=== PATIENT | female | born 1945 | race African-American/Black ===

== ENCOUNTER 2020-06-22 07:11 | Inpatient (IN) | payer MEDICARE ==
[~2020-06-22] VITALS: Ht 165.1 cm; Wt 117.7 kg
[2020-06-22 04:30] VITALS: BP 123/72
[2020-06-22 07:37] VITALS: BP 118/63
[2020-06-22 08:09] LABS: BASOPHILS 0.1 % (0-2); EOSINOPHILS 1.4 % (0-7); HEMATOCRIT 30.2 % (36.0-48.0); IMMATURE GRANULOCYTES 0.5 % (0-5); LYMPHOCYTE ABS# 1.31 10x3/uL (1.18-3.74); LYMPHOCYTES 9.7 % (15-50); MCH 26.8 pg (26.0-34.0); MCHC 33.1 g/dL (31.0-37.0); MEAN PLATELET VOLUME 10.5 fL (7.4-10.4); MONOCYTES 5.5 % (2-11); NEUTROPHILS 82.8 % (40-80); PLATELET COUNT 371 10x3/uL (130-400); RBC 3.73 10x6/uL (4.00-5.40); RDW 16.3 % (11.5-14.5); WBC 13.5 10x3/uL (4.8-10.8)
[2020-06-22 08:18] LABS: CARBON DIOXIDE 28.1 mmol/L (21.0-32.0); CKMB 3.1 U/L (0.0-3.6); CREATINE KINASE 301 UL (21-215); CREATININE - SERUM 6.3 mg/dL (0.6-1.3); GLUCOSE 122 mg/dL (74-106); POTASSIUM - SERUM 3.6 mmol/L (3.5-5.1); SODIUM 124 mmol/L (136-145); eGFR NON AFRICAN AMERICAN 7 mL/min (90-120)
[2020-06-22 08:21] LABS: CALC OSMOLALITY 307 mosm/kg (275-300); TROPONIN-I < 0.017 ng/mL (0.000-0.060)
[2020-06-22 08:23] LABS: CHLORIDE - SERUM 81 mmol/L (98-107); UREA NITROGEN 171 mg/dL (7-18)
--- NOTE | 2020-06-22 09:25 | NUR ---
IV TO LEFT AC INFILTRATED, DISCONTINUED WITH TIP INTACT AND BLEEDING CONTROLLED. IV RESITED TO RIGHT AC, 20 GAUGE. PATIENT TOLERATED WELL. GOOD BLOOD RETURN AND FLUSHES WELL WITHOUT ANY RESISTANCE OR SWELLING. IV FLUIDS RESTARTED TO NEW IV. AT THIS TIME. FAMILY AT BEDSIDE.
[2020-06-22] MEDS ORDERED: ZYLOPRIM100 MG PO (11:08)
[2020-06-22] MEDS ORDERED: IPRAT-ALBUT 0.5-3 ML UPD (11:08)
[2020-06-22] MEDS ORDERED: LIPITOR20 MG PO (11:09)
[2020-06-22] MEDS ORDERED: PULMICORT0.25 MG/1 INH (11:09)
[2020-06-22] MEDS ORDERED: NORVASC2.5 MG PO (11:09)
[2020-06-22] MEDS ORDERED: TIROSINT25 MCG PO (11:10)
[2020-06-22] MEDS ORDERED: LINZESS290 MCG PO (11:10)
[2020-06-22] MEDS ORDERED: HYDRALAZINE HCL25 MG PO (11:10)
[2020-06-22] MEDS ORDERED: LASIX80 MG PO (11:10)
[2020-06-22] MEDS ORDERED: CLARITIN 10 MG10 MG PO (11:11)
[2020-06-22] MEDS ORDERED: DITROPAN XL 1010 MG PO (11:11)
[2020-06-22] MEDS ORDERED: NORTRIPTYLINE H50 MG PO (11:11)
[2020-06-22] MEDS ORDERED: OMEPRAZOLE20 M1 PO (11:11)
[2020-06-22] MEDS ORDERED: MIRALAX17 GM PO (11:12)
[2020-06-22] MEDS ORDERED: K-DUR20 MEQ PO (11:12)
[2020-06-22 12:00] VITALS: BP 122/69
--- NOTE | 2020-06-22 12:00 | NUR ---
NURSE RECEIVED PATIENT FROM ER VIA BED, FAMILY WITH PATIENT IN ROOM. PATIENT HAS MOVEMENT TO HER LEGS, BUT UNABLE TO STAND. PATIENT IS A MAX ASSIST. PATIENT HAS A CRANDALL CATH ON ARRIVAL, AND A TRACH (DAUGHTER STATES TRACH IS DUE TO PATIENT'S AIR WAY CLOSING WHEN SHE SLEEPS, SO THEY PLACED THIS). PATIENT IS ALERT AND ORIENTED. PATIENT DOES HAVE BREAKDOWN ON HER COCCYX AND TOPS OF HER LEGS, PATIENT HAS A DRESSING TO HER LEFT LEG. PATIENT EATS AND DRINKS REGULARLY. SHE LIVES AT HOME WHERE HER DAUGHTER HIS HER CAREGIVER. CALL LIGHT IN REACH.
[2020-06-22 12:43] VITALS: BP 122/69; BMI 38.6
--- NOTE | 2020-06-22 16:21 | NUR ---
NURSE TALKS WITH PATIENT'S DAUGHTER AND PATIENT ABOUT CODE STATUS. PATIENT STATES SHE UNDERSTANDS WHAT IT MEANS TO BE A DNR AND THAT IS WHAT SHE CHOOSES, SHE DOES NOT WISH TO HAVE HER HEART STARTED BACK IF IT STOPS AND NO MEDICATIONS EITHER. NURSE HAS A WITNESS SIGN WITH HER AND WILL NOTIFY MD/PLYWOOD LAYUP LINE CORE FEEDER OF PATIENT'S WISHES.
--- NOTE | 2020-06-22 19:30 | NUR ---
PT IN BED, EYES CLOSED, RESP EVEN AND UNLABORED, NO DISTRESS NOTED, CL IN REACH, SR UP X 2.
[2020-06-22 20:39] VITALS: BP 100/64
--- NOTE | 2020-06-22 23:15 | NUR ---
PT CHECKED FOR IMPACTION, SOFT STOOL NOTED, SOAP SUDS ENEMA GIVEN X 3. LARGE SOFT BROWN BM NOTED AT THIS TIME.
[2020-06-22 23:46] LABS: ANION GAP 16.8 mmol/L (8-16); CARBON DIOXIDE 28.3 mmol/L (21.0-32.0); CREATININE - SERUM 6.8 mg/dL (0.6-1.3); POTASSIUM - SERUM 3.1 mmol/L (3.5-5.1)
[2020-06-23] VITALS (9 sets, daily range): BP systolic 91–153; BP diastolic 59–103; Ht 165.1 cm; Wt 117.7 kg
--- NOTE | 2020-06-23 02:05 | NUR ---
RENAL NOTIFIED OF CONSULT FOR PT PER [facility]IMARY [facility] LEADER ORDER. SUBSANTIAL LABS REPORTED. NOTIFIED OF CURRENT PLAN OF CARE. NEW LABS WILL BE DRAWN IN AM TO REFLECT CURRENT FLUID CHALLENGE. NEW 20G PIV SITED TO LEFT FA, PT TOLERATED WELL.
--- NOTE | 2020-06-23 05:38 | NUR ---
BED BATH GIVEN TO PT
[2020-06-23 06:11] LABS: BASOPHILS 0.2 % (0-2); EOSINOPHILS 1.8 % (0-7); HEMATOCRIT 30.5 % (36.0-48.0); HEMOGLOBIN 9.9 g/dL (12-16); IMMATURE GRANULOCYTES 0.6 % (0-5); LYMPHOCYTE ABS# 1.53 10x3/uL (1.18-3.74); LYMPHOCYTES 10.6 % (15-50); MCH 26.7 pg (26.0-34.0); MCHC 32.5 g/dL (31.0-37.0); MCV 82.2 fL (80.0-100.0); MEAN PLATELET VOLUME 10.3 fL (7.4-10.4); MONOCYTES 5.5 % (2-11); NEUTROPHIL ABS# 11.72 10x3/uL (1.56-6.13); NEUTROPHILS 81.3 % (40-80); PLATELET COUNT 375 10x3/uL (130-400); RBC 3.71 10x6/uL (4.00-5.40); RDW 16.4 % (11.5-14.5); WBC 14.4 10x3/uL (4.8-10.8)
[2020-06-23 06:53] LABS: ANION GAP 19.2 mmol/L (8-16); C-REACTIVE PROTEIN 11.4 mg/dL (0.0-0.9); CALCIUM 8.1 mg/dL (8.5-10.1); CREATININE - SERUM 6.6 mg/dL (0.6-1.3); MAGNESIUM - SERUM 2.9 mg/dL (1.8-2.4); POTASSIUM - SERUM 3.2 mmol/L (3.5-5.1)
[2020-06-23 07:02] LABS: PHOSPHOROUS 10.3 mg/dL (2.5-4.9)
--- NOTE | 2020-06-23 07:47 | NUR ---
ROUNDING DONE WITH EXTREME LARGE ABDOMINAL AREA, SOFT TO PALPATE. NIGHT NURSE HAS BEEN GIVEING SOAP SUDS ENEMAS ALL NIGHT WITH EXCELLENT RESUTLS. PATIENT IS A DNR CODE STATUS. ON ROOM AIR WITH PESSIMIRE VALUE IN TRACH. BILATERAL SCD ON AND IN USE. LEFT FA SEEN PIV WITH NS INFUSING AT 100 CC/HR. PATIENT WITH CHRONIC CRANDALL CATH. WAS TOLD MEPILEX IS ON BOTTOM WILL LOOK SHORTLY AND CHANGE IF NO DATE. BED ALARM IS SET.
--- NOTE | 2020-06-23 09:54 | NUR ---
OT NOTE: PT LIEING AT APPROX 45 DEGREE ANGLE IN BED. PRACTICED BED MOB INCLUDING ROLLING FROM SIDE TO SIDE.. PT PERFORMED BETTER TODAY. PERFORMED UE AROM EXS WITH FREQ REST BREAKS. POSITIONED PT IN BED ON L SIDE FOR PRESSURE RELIEF TO BUTTOCKS. PT ASKING ABOUT BREAKFAST AND WHY SHE DID NOT RECEIVE A TRAY. NOTICED NPO ON DOOR.. ATTEMPTED TO FIND NURSING AND CHECK CHART BUT DID NOT FIND ANYTHING AT THIS TIME. WILL CHECK IN PM FOR CONT AROM EXS AND POSIITONING XAVIER MADRIGAL, OTR/L [phone]
--- NOTE | 2020-06-23 10:12 | NUR ---
DAUGHTER TO CALL AND CHECK ON HER.
--- NOTE | 2020-06-23 11:33 | NUR ---
WITH ASSIST X 4 PATIENT ROLLED TO EACH SIDE TO LOOK AT WOUNDS. LARGE ENTIRE BUTTOCK AREA SEEN WITH STAGE 2 WITH OLD PRESSURE SORES THAT HAVE HEALED. CULTURE TAKEM FROM LEFT POSTERIOR THIGH. URINE FROM PORT ON CRANDALL CATH BAG. MEPILEX PLACED TO BUTTOCK AND WHITE CORFER GUAZE TO BOTH LEFT AND RIGHT POSTERIOR UPPER THIGHS. DATED.
[2020-06-23 14:20] LABS: BILIRUBIN NEGATIVE (NEGATIVE); KETONE NEGATIVE (NEGATIVE); NITRITE NEGATIVE (NEGATIVE); UROBILINOGEN NORMAL mg/dL (< 2)
[2020-06-23 14:21] LABS: BACTERIA MANY HPF (NONE SEEN); SQUAMOUS EPITHELIAL 0-5 HPF (0-4)
--- NOTE | 2020-06-23 16:11 | NUR ---
GOSIA ROMERO APN ON FLOOR AND I ASKED HER TO SEE PATIENT REGARDING MORE DISTENDED TO ABDOMEN. GOSIA CALLED DR RHODES TO SOME SEE PATIENT. THE CT THAT WAS ORDERED SHE NEEDS TO BE STAT AND PAGE INTO DR ROLDAN PER DR RHODES. PATIENT IS HEADED TO CT VIA BED FOR EXAM.
--- NOTE | 2020-06-23 16:29 | NUR ---
RETURNS FROM CT
--- NOTE | 2020-06-23 17:05 | NUR ---
HR IS [address] RHODES IS HERE AND NEW ORDERS TO MOVE PATIENT TO UNIT. CALLED PUBLIC WORKS COMMISSIONER FOR ROOM, AWAITING.
--- NOTE | 2020-06-23 17:12 | NUR ---
REPORT CALLED TO RYANN CEBALLOS IN ICU. AWAITING ROOM.
--- NOTE | 2020-06-23 17:15 | NUR ---
I ASKED FOR GOSIA ROMERO APN TO CALL THE DAUGHTER AND EXPLAIN WHAT IT GOING ON. SHE SAID THAT SHE WOULD.
--- NOTE | 2020-06-23 17:41 | NUR ---
RECEIVED FROM [place], ATTACHED TO MONITOR. HR 150, IRMA AGUIRRE DISCUSSING PLAN WITH BILL COPE APRN.
--- NOTE | 2020-06-23 18:26 | NUR ---
henry kennedy [phone] (astrid, closest family to her)
--- NOTE | 2020-06-23 18:26 | NUR ---
spoke with daughter from [facility] given update.
--- NOTE | 2020-06-23 18:29 | NUR ---
IS ORIENTED TO SELF AND TIME. REORIENTED THAT SHE GOT HERE YESTERDAY FROM [place]. DR. ROLDAN CAME BY, PERFORMED JUNG WITH SOME FLATULENCE AND MINIMAL STOOL THAT CAME BACK. ORDERED RECTAL TUBE AND INTERMITTENT ENEMAS. RECTAL TUBE INSERTED BY WILL AGUIRRE RN. 500 CC ENEMA GIVEN VIA RECTAL TUBE BY ME. RETURNED 2000 CC OF FLATULENCE AND 300 CC OF BROWN LIQUID. TOLERATED WELL. ABD CONSIDERABLY SOFTER AFTER THIS PROCEDURE. SHE DOES PRESENT WITH RESOLVING PRESSURE ULCERS TO HER SACRAL AND THIGH AREAS. STILL WITH SMALL STAGE IIS ON BACK OF THIGHS, AND STAGE IIS NOTED TO ABD FOLDS. BUTT PASTE AND POWDER ARE APPLIED TO THESE AREAS. MEPILEX APPLIED TO SACRUM. LEFT ON LEFT SIDE.
[2020-06-24] VITALS (24 sets, daily range): BP systolic 101–189; BP diastolic 52–109
[2020-06-24 03:35] LABS: BASOPHILS 0.1 % (0-2); EOSINOPHILS 1.3 % (0-7); HEMATOCRIT 27.9 % (36.0-48.0); HEMOGLOBIN 8.9 g/dL (12-16); IMMATURE GRANULOCYTES 0.6 % (0-5); LYMPHOCYTE ABS# 1.52 10x3/uL (1.18-3.74); LYMPHOCYTES 10.7 % (15-50); MCH 26.3 pg (26.0-34.0); MCHC 31.9 g/dL (31.0-37.0); MCV 82.3 fL (80.0-100.0); MEAN PLATELET VOLUME 9.9 fL (7.4-10.4); MONOCYTES 6.5 % (2-11); NEUTROPHIL ABS# 11.42 10x3/uL (1.56-6.13); NEUTROPHILS 80.8 % (40-80); PLATELET COUNT 324 10x3/uL (130-400); RBC 3.39 10x6/uL (4.00-5.40); RDW 16.3 % (11.5-14.5); WBC 14.2 10x3/uL (4.8-10.8)
[2020-06-24 03:44] LABS: ALBUMIN 2.7 g/dL (3.4-5.0); ANION GAP 18.1 mmol/L (8-16); BILIRUBIN - TOTAL 0.32 mg/dL (0.2-1.3); CALCIUM 8.1 mg/dL (8.5-10.1); CARBON DIOXIDE 25.8 mmol/L (21.0-32.0); CREATININE - SERUM 6.1 mg/dL (0.6-1.3); PHOSPHOROUS 9.5 mg/dL (2.5-4.9); PROTEIN - SERUM 6.8 g/dL (6.4-8.2)
[2020-06-24 03:46] LABS: POTASSIUM - SERUM 2.9 mmol/L (3.5-5.1)
--- NOTE | 2020-06-24 04:30 | NUR ---
notified Vince Sin of critical values. Dr Mccartney to see this morning.
[2020-06-24 14:55] LABS: ANION GAP 17.6 mmol/L (8-16); CALCIUM 8.2 mg/dL (8.5-10.1); CARBON DIOXIDE 25.3 mmol/L (21.0-32.0); CREATININE - SERUM 5.8 mg/dL (0.6-1.3)
[2020-06-24 14:58] LABS: POTASSIUM - SERUM 2.9 mmol/L (3.5-5.1)
[2020-06-24 23:48] LABS: ANION GAP 16.9 mmol/L (8-16); CALCIUM 8.2 mg/dL (8.5-10.1); CARBON DIOXIDE 24.4 mmol/L (21.0-32.0); CREATININE - SERUM 5.7 mg/dL (0.6-1.3); POTASSIUM - SERUM 3.3 mmol/L (3.5-5.1)
[2020-06-25] VITALS (24 sets, daily range): BP systolic 96–129; BP diastolic 50–96
[2020-06-25 04:31] LABS: BASOPHILS 0.1 % (0-2); EOSINOPHILS 1.4 % (0-7); HEMOGLOBIN 7.8 g/dL (12-16); IMMATURE GRANULOCYTES 0.5 % (0-5); LYMPHOCYTE ABS# 1.07 10x3/uL (1.18-3.74); LYMPHOCYTES 7.2 % (15-50); MCH 26.2 pg (26.0-34.0); MCHC 31.2 g/dL (31.0-37.0); MCV 83.9 fL (80.0-100.0); MEAN PLATELET VOLUME 10.2 fL (7.4-10.4); MONOCYTES 5.8 % (2-11); NEUTROPHIL ABS# 12.57 10x3/uL (1.56-6.13); PLATELET COUNT 292 10x3/uL (130-400); RBC 2.98 10x6/uL (4.00-5.40); RDW 16.2 % (11.5-14.5); WBC 14.8 10x3/uL (4.8-10.8)
[2020-06-25 05:20] LABS: THYROID STIMULATING HORMONE 1.01 uIU/mL (0.36-3.74)
[2020-06-25 05:36] LABS: ALBUMIN 2.5 g/dL (3.4-5.0); ANION GAP 18.7 mmol/L (8-16); BILIRUBIN - TOTAL 0.25 mg/dL (0.2-1.3); CALCIUM 7.9 mg/dL (8.5-10.1); CARBON DIOXIDE 20.7 mmol/L (21.0-32.0); CREATININE - SERUM 5.9 mg/dL (0.6-1.3); MAGNESIUM - SERUM 2.8 mg/dL (1.8-2.4); PHOSPHOROUS 8.9 mg/dL (2.5-4.9); POTASSIUM - SERUM 3.4 mmol/L (3.5-5.1); PROTEIN - SERUM 6.3 g/dL (6.4-8.2)
--- NOTE | 2020-06-25 18:05 | NUR ---
PATIENT SIGNED CONSENTS FOR SURGERY TOMORROW, PHONE CONSENT ALSO RECEIVED FROM DAUGHTER VIMAL TRINIDAD PATIENT DAUGHTER AND CAREGIVER. UNIT BLOOD GIVEN TODAY. CARDIZEM AT 5 MG HOUR. LR INFUSING AT 75 ML HOUR. OXYGEN DECREASED TO 28% PER TRACH COLLAR. PATIENT AWAKE AND ALERT ANSWERS QUESTIONS APPRIOPIATELY AND OBEYS COMMANDS. NO DISTRESS. CREAMS TO BUTTOCK AND COCCOYX.
[2020-06-26] VITALS (40 sets, daily range): BP systolic 90–162; BP diastolic 43–90
[2020-06-26 05:02] LABS: BASOPHILS 0.1 % (0-2); EOSINOPHILS 0.8 % (0-7); HEMATOCRIT 24.6 % (36.0-48.0); HEMOGLOBIN 7.9 g/dL (12-16); IMMATURE GRANULOCYTES 0.5 % (0-5); LYMPHOCYTE ABS# 1.26 10x3/uL (1.18-3.74); LYMPHOCYTES 6.5 % (15-50); MCH 26.7 pg (26.0-34.0); MCHC 32.1 g/dL (31.0-37.0); MCV 83.1 fL (80.0-100.0); MEAN PLATELET VOLUME 9.9 fL (7.4-10.4); MONOCYTES 5.9 % (2-11); NEUTROPHIL ABS# 16.63 10x3/uL (1.56-6.13); NEUTROPHILS 86.2 % (40-80); PLATELET COUNT 279 10x3/uL (130-400); RBC 2.96 10x6/uL (4.00-5.40); RDW 16.4 % (11.5-14.5)
[2020-06-26 05:03] LABS: WBC 19.3 10x3/uL (4.8-10.8)
[2020-06-26 05:19] LABS: ALBUMIN 2.3 g/dL (3.4-5.0); ANION GAP 15.7 mmol/L (8-16); BILIRUBIN - TOTAL 0.29 mg/dL (0.2-1.3); CALCIUM 7.9 mg/dL (8.5-10.1); CARBON DIOXIDE 22.7 mmol/L (21.0-32.0); CREATININE - SERUM 5.6 mg/dL (0.6-1.3); MAGNESIUM - SERUM 2.7 mg/dL (1.8-2.4); POTASSIUM - SERUM 3.4 mmol/L (3.5-5.1); PROTEIN - SERUM 6.3 g/dL (6.4-8.2)
--- NOTE | 2020-06-26 07:15 | NUR ---
REPORT RECEIVED. ASSESSMENT COMPLETE PER FLOW SHEET. VSS. PT RESTING COMFORTABLY WILL CONTINUE TO MONITOR
--- NOTE | 2020-06-26 09:33 | NUR ---
Nutrition follow-up: Pt remains NPO for colostomy today Labs reviewed Pt continues with massively distended abdomen from gas build-up. Wt: 258# Recommend starting nutrition support soon if oral diet unable to begin. RDN follow-up: 06/28/20
--- NOTE | 2020-06-26 11:40 | NUR ---
PT TO OR AT THIS TIME.
--- NOTE | 2020-06-26 14:09 | NUR ---
PT BACK FROM OR. VSS. KAIDEN RT NOTIFIED PT REQUIRING VENT AT THIS TIME. FAMILY AT BEDSIDE GIVEN UPDATE.
--- NOTE | 2020-06-26 17:00 | NUR ---
DR HINOJOSA CALLED GIVEN UPDATE REGAURDING PT STATUS, PT PASSED CPAP TRIAL FAILED ON TRACH COLLAR, HR DROPPED TO 50 PT O2 SAT UNREGISTERABLE, BP NOT READING, BREATHING AGONAL. PLACED BACK ON VENT WITH GOOD RESPONSE HR 100 BP 128/76, O2 SAT 100%. STATED TO LEAVE ON VENT OVERNIGHT DO NOT SEDATE.
[2020-06-26 17:19] LABS: BASOPHILS 0.7 % (0-2); EOSINOPHILS 0.9 % (0-7); HEMATOCRIT 28.3 % (36.0-48.0); HEMOGLOBIN 8.8 g/dL (12-16); LYMPHOCYTES 15.6 % (15-50); MCH 26.2 pg (26.0-34.0); MCHC 30.9 g/dL (31.0-37.0); MCV 84.8 fL (80.0-100.0); MEAN PLATELET VOLUME 7.5 fL (7.4-10.4); MONOCYTES 3.4 % (2-11); NEUTROPHILS 79.4 % (40-80); PLATELET COUNT 305 10x3/uL (130-400); RBC 3.34 10x6/uL (4.00-5.40); RDW 18.1 % (11.5-14.5); WBC 23.3 10x3/uL (4.8-10.8)
[2020-06-27] VITALS (43 sets, daily range): BP systolic 103–152; BP diastolic 45–77
[2020-06-27 06:11] LABS: ALBUMIN 2.5 g/dL (3.4-5.0); ANION GAP 18.3 mmol/L (8-16); BILIRUBIN - TOTAL 0.34 mg/dL (0.2-1.3); CALCIUM 8.1 mg/dL (8.5-10.1); CREATININE - SERUM 5.4 mg/dL (0.6-1.3); MAGNESIUM - SERUM 2.6 mg/dL (1.8-2.4); PHOSPHOROUS 6.7 mg/dL (2.5-4.9); POTASSIUM - SERUM 3.3 mmol/L (3.5-5.1); PROTEIN - SERUM 5.5 g/dL (6.4-8.2); VANCOMYCIN - RANDOM 18.3 ug/mL (10.0-20.0)
[2020-06-27 06:19] LABS: RBC 2.59 10x6/uL (4.00-5.40); WBC 20.8 10x3/uL (4.8-10.8)
[2020-06-27 06:20] LABS: HEMATOCRIT 21.6 % (36.0-48.0); MCH 26.7 pg (26.0-34.0); MCV 83.4 fL (80.0-100.0); RDW 17.8 % (11.5-14.5)
[2020-06-27 06:21] LABS: MEAN PLATELET VOLUME 8.1 fL (7.4-10.4); PLATELET COUNT 240 10x3/uL (130-400)
[2020-06-27 06:22] LABS: HEMOGLOBIN 6.9 g/dL (12-16)
--- NOTE | 2020-06-27 06:40 | NUR ---
SPOKE WITH CORETTA BARRIOS FOR SKETAS. NO BLOOD SEEN BUT HGB DECREASED TO 6.6 REC'D ORDER AND ORDER PLACED IN EMR FOR 2 UNITS PRBCS TO BE GIVEN. ALSO PAGED DR ROLDAN AT THIS TIME TO INFORM OF LAB RESULTS. AWAITING RETURN PAGE.
--- NOTE | 2020-06-27 07:30 | NUR ---
PT RESTING COMFORTABLE, DENIES PAIN AT THIS TIME, POSITIONED FOR COMFORT, CALL LIGHT IN REACH, WILL MONITOR
--- NOTE | 2020-06-27 09:10 | NUR ---
DR HINOJOSA HERE SEEING PATIENT
[2020-06-27 13:46] LABS: EOSINOPHILS 1 % (0-7); LYMPHOCYTES 4 % (15-50); MONOCYTES 6 % (2-11); NEUTROPHILS 88 % (40-80); PLATELET ESTIMATE NORMAL; ROULEAUX OCC
--- NOTE | 2020-06-27 14:30 | NUR ---
pt repositioned at this time, no acute distress noted, denies pain, will monitor
--- NOTE | 2020-06-27 17:58 | NUR ---
repositioned at this time, tulio bravo, will monitor
[2020-06-28] VITALS (23 sets, daily range): BP systolic 111–157; BP diastolic 53–91
--- NOTE | 2020-06-28 00:23 | NUR ---
PT UNCOMFOMTABLE AND AND UNSURE WHY. RT CALLED TO PLACE BACK ON RATE ON VENT PT UPSET. REPOSITIONED AND RT RETURNED TO PRIOR VENT SETTINGS OF AC. BAGGED AND SUCTIONED PER RT. SOME SMALL THICK SECRETIONS NOTED. ONCE COMPLETE PT MORE COMFORTABLE. WILL CONT TO MONITOR.
[2020-06-28 06:03] LABS: BASOPHILS 0.3 % (0-2); EOSINOPHILS 0.3 % (0-7); MCH 27.7 pg (26.0-34.0); MCHC 32.4 g/dL (31.0-37.0); MONOCYTES 5.3 % (2-11); NEUTROPHILS 89.1 % (40-80); PLATELET COUNT 192 10x3/uL (130-400); RBC 3.06 10x6/uL (4.00-5.40); RDW 17.2 % (11.5-14.5)
[2020-06-28 06:12] LABS: ALBUMIN 2.7 g/dL (3.4-5.0); BILIRUBIN - TOTAL 0.55 mg/dL (0.2-1.3); CALCIUM 8.3 mg/dL (8.5-10.1); CARBON DIOXIDE 22.7 mmol/L (21.0-32.0); CREATININE - SERUM 5.4 mg/dL (0.6-1.3); MAGNESIUM - SERUM 2.5 mg/dL (1.8-2.4); PHOSPHOROUS 5.7 mg/dL (2.5-4.9); PROTEIN - SERUM 5.7 g/dL (6.4-8.2); VANCOMYCIN - RANDOM 16.5 ug/mL (10.0-20.0)
[2020-06-28 06:13] LABS: ANION GAP 18.2 mmol/L (8-16)
[2020-06-28 06:14] LABS: POTASSIUM - SERUM 2.9 mmol/L (3.5-5.1)
[2020-06-28 06:20] LABS: HEMATOCRIT 26.2 % (36.0-48.0); HEMOGLOBIN 8.5 g/dL (12-16); MCV 85.6 fL (80.0-100.0)
--- NOTE | 2020-06-28 08:15 | NUR ---
PT SEEMS LETHARGIC. WAKES TO VERBAL/PHYSICAL STIMULI WITH MULTIPLE TRIES. DR. HINOJOSA MADE AWARE. ABLE TO FOLLOW COMMANDS WHEN AWAKE. PT PLACED ON CPAP TRIALS. TOLERATING WELL. ORAL CARE PERFORMED. CALL LIGHT WITHIN REACH. BED RAILS UP X2
--- NOTE | 2020-06-28 09:15 | NUR ---
PT REMOVED FROM VENT AND PLACED ON TRACH COLLAR AT 35% PER DR. HINOJOSA. RT AT BEDSIDE. PT SAT 96% AND TOLERATING WELL.
--- NOTE | 2020-06-28 12:16 | NUR ---
PATIENT OFF OF VENT ON 35% TC AT 0910
--- NOTE | 2020-06-28 12:45 | NUR ---
Nutrition follow-up: Pt with trach. Pt now off vent and on TC Per Dr. Bryant, oral diet to start today and pt to move to floor Pt continues NPO at this time Labs reviewed Wt: 263# Pt POD#2 of colostomy; colostomy has output Nephrology following due to decreased renal function RDN will monitor patients diet advancement, tolerance and progress toward nutrition goals. Follow-up: 06/30/20
--- NOTE | 2020-06-28 15:44 | NUR ---
SATS DROPPED TO 85%. PT VISIBLY DISTRESSED AND COUGHING. PASSIMIR VALVE REMOVED AND DEEP SUCTIONED. THICK LAYNE MUCOUS REMOVED. RESPIRATORY CALLED TO BEDSIDE PT BAGGED AND LAVAGED FOR APPROX. 2 MINUTES. O2 SATS IMPROVED TO 96%. PT SEEMS CALM.
--- NOTE | 2020-06-28 17:11 | NUR ---
PT UNABLE TO STAY AWAKE LONG ENOUGH TO ATTEMPT SWALLOW EVALUATION. PER DR. HINOJOSA STATES OKAY TO PLACE NG AND START FEEDS.
--- NOTE | 2020-06-28 19:30 | NUR ---
REPORT REC'D AND CARE ASSUMED, PT AWAKENS TO VERBAL STIMULI, DOES NOT FOLLOW COMMANDS OR ATTEMPT TO TALK, BP 136/77, HR 110 ST WITH PVC/PAC, RIGHT GROIN TL DRSG CDI CARDIZEM INFUSING @ 5CC/HR AND LR @ 125CC/HR, GENERALIZED EDEMA, SOFT WRIST RESTRAINTS ON BUT UNTIED AT THIS TIME, SR UP X 2 ,AIR OVERLAY MATTRESS IN USE, PP WEAK.
--- NOTE | 2020-06-28 22:00 | NUR ---
16FR NASOGASTRIC TUBE PLACED TO RIGHT NARE, AIR BOLUS AUSCULTATED OVER EPIGASTRIM TO VERIFY PLACMENT, NGT SECURED WITH HARRELL AND NEPRO STARTED @ 10CC/HR
[2020-06-29] VITALS (18 sets, daily range): BP systolic 98–149; BP diastolic 50–94
[2020-06-29 04:57] LABS: ANION GAP 22.1 mmol/L (8-16); CALCIUM 8.8 mg/dL (8.5-10.1); CARBON DIOXIDE 20.1 mmol/L (21.0-32.0); CREATININE - SERUM 5.3 mg/dL (0.6-1.3); MAGNESIUM - SERUM 2.3 mg/dL (1.8-2.4); PHOSPHOROUS 5.2 mg/dL (2.5-4.9); POTASSIUM - SERUM 3.2 mmol/L (3.5-5.1); VANCOMYCIN - RANDOM 13.5 ug/mL (10.0-20.0)
[2020-06-29 05:01] LABS: BASOPHILS 0.3 % (0-2); EOSINOPHILS 0.2 % (0-7); HEMOGLOBIN 9.2 g/dL (12-16); LYMPHOCYTES 4.6 % (15-50); MCH 27.5 pg (26.0-34.0); MCHC 31.5 g/dL (31.0-37.0); MCV 87.1 fL (80.0-100.0); MEAN PLATELET VOLUME 7.6 fL (7.4-10.4); MONOCYTES 5.3 % (2-11); NEUTROPHILS 89.6 % (40-80); PLATELET COUNT 205 10x3/uL (130-400); RBC 3.33 10x6/uL (4.00-5.40); RDW 17.9 % (11.5-14.5); WBC 22.6 10x3/uL (4.8-10.8)
== END 2020-06-29 16:05 | disposition short-term general hospital (02) | DRG 329 ==
LOC: D.ER 07:11 → D.ICU 07:35 → D.M2 07:35 → D.ICU 06-23 17:33
PROVIDERS: Emergency Medicine; Family Medicine; Internal Medicine; Internal Medicine Nephrology; Internal Medicine Pulmonary Disease; Surgery; ADMIT Family Medicine; ATTEND Family Medicine
PROC: 04HK33Z Insertion of Infusion Device into Right Femoral Artery, Percutaneous Approach (ICD-10-PCS; 2020-06-24)
PROC: 0B21XFZ Change Tracheostomy Device in Trachea, External Approach (ICD-10-PCS; 2020-06-26)
PROC: 0D1M0Z4 Bypass Descending Colon to Cutaneous, Open Approach (ICD-10-PCS; principal; 2020-06-26 09:30)
DX: K59.39 Other megacolon (principal); N17.0 Acute kidney failure with tubular necrosis; R53.2 Functional quadriplegia; E87.1 Hypo-osmolality and hyponatremia; Z68.41 Body mass index [BMI] 40.0-44.9, adult; N39.0 Urinary tract infection, site not specified; I47.1 Supraventricular tachycardia; N17.9 Acute kidney failure, unspecified; D62 Acute posthemorrhagic anemia; K59.81 Ogilvie syndrome; I95.9 Hypotension, unspecified; D50.9 Iron deficiency anemia, unspecified; E66.8 Other obesity; I10 Essential (primary) hypertension; L89.152 Pressure ulcer of sacral region, stage 2; N20.0 Calculus of kidney; E11.65 Type 2 diabetes mellitus with hyperglycemia; E83.41 Hypermagnesemia; E83.39 Other disorders of phosphorus metabolism; I48.91 Unspecified atrial fibrillation; R56.9 Unspecified convulsions